=== PATIENT | female | born 1945 | race Caucasian/White ===

== ENCOUNTER → 2016-06-05 | Outpatient (CLI) | payer MEDICARE, OTHER ==
[~2016-06-05] MED LIST: /FENT75PA TD; /HCTZ25TA PO; /MOXI40TA OR; /TIOT18INH INH; ADVAIR INH; ALBU17IN2 INH; ALBU83IN INH; ALBUTEROL TX OR; ASTHMANEX INH; AZIT600T PO; Albuterol Inhaler INH; CALC PO; CALCIUM W VIT D PO; CYCL10TA3 PO; Diazepam PO; Docusate Sodium PO; FENO160T10 PO; Gabapentin PO; HUMALOG SC; HYDR1CR EXT; HYDR25TA6 PO; INSULANT SC; LEVA750T OR; Lantus Insulin SC; METF500T4 OR; METOPROLOL TARTRATE PO; MUCI600T34 PO; MUCU400T2 OR; Metoprolol PO; NEUR100C OR; NYAM10003 EXT; OMEP40CA2 PO; Oxycodone PO; PERCOCET PO; PLAV75TA2 OR; PRED5TAB OR; PREDPOW10 PO; PRO AIR INH; Prednisone PO; SIMVPOW2 PO; SOMA350T PO; Symbicort Inhaler INH; TUSSSUS5 OR; VICO5TAB OR; XOPE1.252 IN; [UNRECOGNIZED DRUG - OTHER] PO
== END ==
LOC: M SMT 11:32
PROVIDERS: ATTEND Internal Medicine Pulmonary Disease
DX: J44.9 Chronic obstructive pulmonary disease, unspecified (principal)

== ENCOUNTER → 2016-06-08 | Outpatient (REF) | payer MEDICARE, OTHER | LOC: M LAB REF 13:26 | PROVIDERS: ATTEND Internal Medicine Pulmonary Disease | DX: J44.1 Chronic obstructive pulmonary disease with (acute) exacerbation (principal) ==

== ENCOUNTER → 2016-06-14 | Outpatient (REF) | payer MEDICARE, OTHER | LOC: M LAB REF 13:23 | PROVIDERS: ATTEND Internal Medicine Pulmonary Disease | DX: J44.1 Chronic obstructive pulmonary disease with (acute) exacerbation (principal) ==

== ENCOUNTER → 2016-07-14 | Outpatient (CLI) | payer MEDICARE, OTHER ==
--- NOTE | 2016-07-14 15:09 | REP ---
LUMBAR SPINE, FIVE VIEWS: HISTORY: Fall. There is no acute fracture. There are old compression fractures of the L1, L3, and L4 vertebral bodies with minimal to mild height loss. The lumbar intervertebral discs are decreased in height. Vacuum phenomenon is present at the L5-S1 level. These findings are consistent with disc degeneration. Osteophytes are present throughout the lumbar spine. There is narrowing of the L3-4 through L5-S1 facet joints. The bony structure is osteopenic. IMPRESSION: Degenerative change as described above. Signed by Baron Melara MD 07/14/2016 03:30 P
== END ==
LOC: M SMT 13:43
PROVIDERS: ATTEND Physician Assistant Medical
DX: S30.91XA Unspecified superficial injury of lower back and pelvis, initial encounter (principal); W00.2XXA Other fall from one level to another due to ice and snow, initial encounter; Y92.89 Other specified places as the place of occurrence of the external cause; Y93.89 Activity, other specified; Y99.8 Other external cause status

== ENCOUNTER → 2016-09-28 | Outpatient (REF) | payer MEDICARE, OTHER ==
[2016-09-28 14:23] LABS: CREATININE FOR GFR 1.09 MG/DL (0.55-1.02); POTASSIUM SERUM 4.7 MEQ/L (3.5-5.1)
== END ==
LOC: M LAB REF 13:16
PROVIDERS: ATTEND Physician Assistant Medical
DX: E11.9 Type 2 diabetes mellitus without complications (principal); E78.5 Hyperlipidemia, unspecified; M81.0 Age-related osteoporosis without current pathological fracture

== ENCOUNTER → 2016-11-16 | Outpatient (CLI) | payer MEDICARE, OTHER ==
--- NOTE | 2016-11-16 12:40 | REP ---
DEEP VENOUS THROMBOSIS STUDY AND REFLUX STUDY: REASON: Chronic venous hypertension left thigh. DEEP VENOUS ULTRASONOGRAPHY LEFT THIGH, RULE OUT DVT: TECHNIQUE: Multiple ultrasonographic images of the deep venous structures of the thigh were obtained from the common femoral vein to the popliteal vein along with Doppler interrogation and color flow Doppler images. FINDINGS: There is no abnormal echogenic material seen within any of the visualized deep venous structures that would suggest acute thrombosis. Coaptation is unremarkable throughout. Doppler interrogation shows an expected response to respiratory variability and augmentation. The color flow images show what appears to be a normal vascular pattern throughout. IMPRESSION: There is no ultrasonographic evidence of deep venous thrombosis involving any of the visualized deep venous structures of the left thigh, as described above. REFLUX STUDY: No reflux was noted in the left common femoral vein and there is no reflux in the anterior accessory greater saphenous vein. No reflux is seen in the greater saphenous vein at the saphenous/femoral vein junction. The AP dimension is 6 mm. No reflux was seen in the mid greater saphenous vein with an AP dimension of 3 mm. No reflux is seen in the greater saphenous vein at the level of the knee, which measured 2 mm in dimension. No reflux was seen in the superficial femoral vein proximally and no significant reflux was seen in the or distal portions of the superficial femoral vein. A small amount of reflux was seen only in the popliteal vein. No reflux was seen in the lesser saphenous vein and t he lesser saphenous vein AP dimension is 3.3 mm. IMPRESSION: Only a small amount of reflux was seen in the popliteal vein. Other findings as described above. Signed by Cristiano Piedra DO 11/16/2016 02:17 P
== END ==
LOC: M RAD 09:47
PROVIDERS: ATTEND Surgery
DX: I87.312 Chronic venous hypertension (idiopathic) with ulcer of left lower extremity (principal)

== ENCOUNTER → 2016-11-20 | Outpatient (CLI) | payer MEDICARE, OTHER ==
--- NOTE | 2016-11-20 14:25 | REP ---
Clinical: Shortness of breath. Comparison: 12/22/2015. Technique: PA and lateral. Findings: The mediastinum and cardiac silhouette are normal. The lung curtis demonstrate chronic linear changes in the bilateral mid lung zones without acute consolidation, effusion, or pneumothorax. The skeletal structures are intact and normal. Impression: 1. No acute cardiopulmonary process. Signed by Nathaniel Arnold MD 11/20/2016 02:16 P
== END ==
LOC: M SMT 13:51
PROVIDERS: ATTEND Nurse Practitioner Adult Health
DX: R06.02 Shortness of breath (principal)

== ENCOUNTER → 2017-04-05 | Outpatient (CLI) | payer MEDICARE, OTHER ==
[2017-04-05 13:53] LABS: CREATININE FOR GFR 0.99 MG/DL (0.55-1.02); POTASSIUM SERUM 4.5 MEQ/L (3.5-5.1)
== END ==
LOC: M SMT 08:38
PROVIDERS: ATTEND Physician Assistant Medical
DX: E11.9 Type 2 diabetes mellitus without complications (principal)

== ENCOUNTER → 2017-06-21 | Outpatient (REF) | payer MEDICARE, OTHER | LOC: M LAB REF 13:08 | DX: J44.1 Chronic obstructive pulmonary disease with (acute) exacerbation (principal) ==

== ENCOUNTER → 2017-06-21 | Outpatient (CLI) | payer MEDICARE, OTHER ==
[2017-06-21 18:57] LABS: ANION GAP 8 MEQ/L (8-16); BLOOD UREA NITROGEN 26 MG/DL (7-18); CALCIUM LEVEL 8.6 MG/DL (8.8-10.2); CARBON DIOXIDE LEVEL 32 MEQ/L (21-32); CHLORIDE LEVEL 100 MEQ/L (98-107); CREATININE FOR GFR 1.07 MG/DL (0.55-1.02); GLUCOSE, FASTING 77 MG/DL (70-100); NT-PRO BNP 265 PG/ML (<125); PHOSPHORUS LEVEL 4.4 MG/DL (2.5-4.9); SODIUM LEVEL 140 MEQ/L (136-145)
[2017-06-21 20:30] LABS: BASO % 0.6 % (0.0-1.0); EOS # 0.1 10^3/uL (0.0-0.50); EOS % 1.4 % (0.0-3.0); HEMATOCRIT 41.4 % (36.0-47.0); HEMOGLOBIN 13.1 g/dl (12.0-16.0); IMMATURE GRANULOCYTE % 0.6 % (0-0); LYMPH # 0.6 10^3/uL (1.5-4.5); LYMPH % 9.1 % (24.0-44.0); MEAN CORPUSCULAR HEMOGLOBIN 30.2 pg (27.0-33.0); MEAN CORPUSCULAR HGB CONC 31.6 g/dl (32.0-36.5); MEAN CORPUSCULAR VOLUME 95.4 fl (80.0-96.0); MONO # 0.5 10^3/uL (0.0-0.8); MONO % 8.3 % (0.0-5.0); PLATELET COUNT, AUTOMATED 215 10^3/uL (150-450); RED BLOOD COUNT 4.34 10^6/uL (4.00-5.40); RED CELL DISTRIBUTION WIDTH 14.3 % (11.5-14.5); WHITE BLOOD COUNT 6.3 10^3/uL (4.0-10.0)
== END ==
LOC: M SMT 12:00
DX: J84.10 Pulmonary fibrosis, unspecified (principal); J98.11 Atelectasis; I50.9 Heart failure, unspecified; J44.1 Chronic obstructive pulmonary disease with (acute) exacerbation
CPT/HCPCS: 80069

== ENCOUNTER → 2017-10-09 | Outpatient (REF) | payer MEDICARE, OTHER ==
[2017-10-09 18:46] LABS: CREATININE, URINE 71.6 MG/DL; MALB URINE SIEMENS 5.2 MG/L; MAU/CREAT RATIO 7.2 MCG/MG (0.0-30.0)
== END ==
LOC: M LAB REF 17:06
DX: N39.0 Urinary tract infection, site not specified (principal); E11.9 Type 2 diabetes mellitus without complications; M54.5 Low back pain
CPT/HCPCS: 82043

== ENCOUNTER → 2017-12-05 | Outpatient (CLI) | payer MEDICARE, OTHER ==
[2017-12-05 14:42] LABS: CREATININE, URINE 87.8 MG/DL; MALB URINE SIEMENS 6.1 MG/L; MAU/CREAT RATIO 6.9 MCG/MG (0.0-30.0)
[2017-12-05 15:56] LABS: ESTIMATED AVERAGE GLUCOSE 146 MG/DL (60-110); HEMOGLOBIN A1c 6.7 %
[2017-12-05 15:58] LABS: ALBUMIN 3.6 GM/DL (3.2-5.2); ALBUMIN/GLOBULIN RATIO 1.24 (1.00-1.93); ALKALINE PHOSPHATASE 45 U/L (45-117); ALT/SGPT 36 U/L (12-78); ANION GAP 10 MEQ/L (8-16); AST/SGOT 26 U/L (7-37); BILIRUBIN,TOTAL 0.3 MG/DL (0.2-1.0); BLOOD UREA NITROGEN 37 MG/DL (7-18); CALCIUM LEVEL 8.6 MG/DL (8.8-10.2); CARBON DIOXIDE LEVEL 30 MEQ/L (21-32); CHLORIDE LEVEL 104 MEQ/L (98-107); CHOLESTEROL LEVEL 173 MG/DL (<200); CHOLESTEROL RISK RATIO 1.965 (<5); CREATININE FOR GFR 1.35 MG/DL (0.55-1.30); GLOMERULAR FILTRATION RATE 41.3 (>39); GLUCOSE, FASTING 102 MG/DL (70-100); HDL CHOLESTEROL 88 MG/DL (>40); LDL CHOLESTEROL 56.4 MG/DL (<100); NON-HDL-C 85 MG/DL; POTASSIUM SERUM 5.1 MEQ/L (3.5-5.1); SODIUM LEVEL 144 MEQ/L (136-145); TOTAL PROTEIN 6.5 GM/DL (6.4-8.2); TRIGLYCERIDES LEVEL 143 MG/DL (<150)
== END ==
LOC: M SMT 08:14
DX: E11.9 Type 2 diabetes mellitus without complications (principal)
CPT/HCPCS: 80053

== ENCOUNTER → 2018-05-02 | Outpatient (REF) | payer MEDICARE, OTHER | LOC: M LAB REF 13:03 | DX: R05 Cough (principal) | CPT/HCPCS: 87205 ==

== ENCOUNTER → 2018-06-18 | Outpatient (CLI) | payer MEDICARE, OTHER | LOC: M LAB 09:14 | PROVIDERS: ATTEND Physician Assistant Medical | DX: M80.87 Other osteoporosis with current pathological fracture, ankle and foot (principal) ==

== ENCOUNTER → 2018-06-18 | Outpatient (CLI) | payer MEDICARE, OTHER ==
--- NOTE | 2018-06-18 13:36 | REP ---
Low-dose lung cancer screening CT study of the chest: Noncontrast. History: COPD. Nicotine dependence. Comparison CT study [facility] October 22, 2008. A chest x-ray from [facility] is obtained and reviewed April 26, 2018. CT findings: There are emphysematous changes in the upper lobes bilaterally. A band-like area of linear fibrosis is seen in the right upper and middle lobe. There are areas of bilateral lower lobe linear fibrosis. These are new findings when compared with the 2009 prior study. No significant pulmonary nodule is appreciated. Impression: Lung -RADS category 2 benign findings. Bilateral linear fibrotic changes and evidence of emphysema, COPD. Annual screening suggested. Electronically Signed by Marin Osorio MD 06/18/2018 05:34 P
== END ==
LOC: M RAD 08:32
PROVIDERS: ATTEND Internal Medicine Pulmonary Disease
DX: Z12.2 Encounter for screening for malignant neoplasm of respiratory organs (principal); J43.9 Emphysema, unspecified; Z87.891 Personal history of nicotine dependence; M80.87 Other osteoporosis with current pathological fracture, ankle and foot
CPT/HCPCS: 36415; 82306; G0297

== ENCOUNTER → 2018-07-15 | Outpatient (CLI) | payer MEDICARE, OTHER ==
--- NOTE | 2018-07-15 14:43 | REP ---
UNILATERAL RIGHT RIBS, PA CHEST: HISTORY: Bone disorder. COMPARISON: 06/21/2017. Linear densities are present in the lower lobes consistent with scarring. The cardiac silhouette is enlarged. The pulmonary vasculature is normal in appearance. The bony structure is intact. The patient is status post right shoulder arthroplasty. IMPRESSION: Bibasilar scarring. Electronically Signed by Baron Melara MD 07/15/2018 02:44 P
== END ==
LOC: M SMT 13:57
PROVIDERS: ATTEND Family Medicine
DX: M89.8X8 Other specified disorders of bone, other site (principal); Z96.611 Presence of right artificial shoulder joint

== ENCOUNTER → 2018-12-02 | Outpatient (CLI) | payer MEDICARE, OTHER ==
[~2018-12-02] MED LIST changes: -/FENT75PA TD; -/HCTZ25TA PO; -/MOXI40TA OR; -/TIOT18INH INH; +AVEL1TAB2 OR; -CALC PO; +CALC1TAB9 PO; +FENT1DIS16 TD; +HYDR-3644 PO; -HYDR1CR EXT; +HYDR1CRE93 EXT; +OXYC1TAB23 PO; -PERCOCET PO; +SPIR1CAP INH
[2018-12-02 13:12] LABS: BASO % 0.4 % (0.0-1.0); EOS # 0.1 10^3/uL (0.0-0.50); EOS % 1.4 % (0.0-3.0); HEMATOCRIT 38.4 % (36.0-47.0); HEMOGLOBIN 11.5 g/dl (12.0-15.5); LYMPH # 0.5 10^3/uL (1.5-4.5); LYMPH % 5.2 % (24.0-44.0); MEAN CORPUSCULAR HGB CONC 29.9 g/dl (32.0-36.5); MEAN CORPUSCULAR VOLUME 100.3 fl (80.0-96.0); MONO # 0.3 10^3/uL (0.0-0.8); MONO % 3.6 % (0.0-5.0); NEUTROPHILS # 8.1 10^3/uL (1.8-7.7); NEUTROPHILS % 88.9 % (36.0-66.0); PLATELET COUNT, AUTOMATED 202 10^3/uL (150-450); RED BLOOD COUNT 3.83 10^6/uL (4.00-5.40); WHITE BLOOD COUNT 9.2 10^3/uL (4.0-10.0)
[2018-12-02 13:30] LABS: ALBUMIN 3.7 GM/DL (3.2-5.2); BILIRUBIN,TOTAL 0.3 MG/DL (0.2-1.0); CALCIUM LEVEL 8.4 MG/DL (8.8-10.2); CHOLESTEROL RISK RATIO 1.92 (<5); CREATININE FOR GFR 1.25 MG/DL (0.55-1.30); POTASSIUM SERUM 4.6 MEQ/L (3.5-5.1); TOTAL PROTEIN 6.9 GM/DL (6.4-8.2)
[2018-12-02 14:17] LABS: HEMOGLOBIN A1c 6.7 %
== END ==
LOC: M SMT 09:50
PROVIDERS: ATTEND Physician Assistant
DX: E11.69 Type 2 diabetes mellitus with other specified complication (principal); E78.5 Hyperlipidemia, unspecified; I87.312 Chronic venous hypertension (idiopathic) with ulcer of left lower extremity; R60.0 Localized edema

== ENCOUNTER → 2018-12-02 | Outpatient (CLI) | payer MEDICARE, OTHER ==
[2018-12-02 13:29] LABS: CALCIUM LEVEL 8.8 MG/DL (8.8-10.2); CREATININE FOR GFR 1.25 MG/DL (0.55-1.30); POTASSIUM SERUM 4.7 MEQ/L (3.5-5.1)
== END ==
LOC: M SMT 09:46
PROVIDERS: ATTEND Physician Assistant Medical
DX: I87.312 Chronic venous hypertension (idiopathic) with ulcer of left lower extremity (principal); R60.0 Localized edema

== ENCOUNTER 2018-12-07 14:43 | Inpatient (IN) | payer MEDICARE, OTHER ==
[~2018-12-07] VITALS: Ht 147.3 cm; Wt 79.6 kg
[2018-12-07] MEDS ORDERED: TETANUS/DIPHTHERIA TOX ADSORB ADULT 0.5ML SYR/VIAL (90714) IM ONE (15:00)
[2018-12-07] MEDS ORDERED: LIDOCAINE 1% MDV 20ML VIAL As Ordered ONE (15:25)
[2018-12-07] MEDS ORDERED: LIDOCAINE 1% MDV 20ML VIAL SC ONE (15:30)
[2018-12-07] MEDS ORDERED: ACETAMINOPHEN 500 MG TAB PO ONE (15:30)
--- NOTE | 2018-12-07 15:33 | REP ---
Left shoulder series: Two views. History: Injury in a fall. Findings: There is an old impacted surgical neck fracture of the left proximal humerus unchanged from comparison chest x-ray 11 32,018. No new proximal humeral fracture is seen. The glenohumeral articulation is normally aligned. There is however an acute fracture of the distal clavicle near the AC joint with overlying soft tissue swelling. There is diffuse osteopenia. No scapular fracture is appreciated. Impression: Acute fracture distal end of the left clavicle near the AC joint. Old healed surgical neck fracture left humerus. Electronically Signed by Marin Osorio MD 12/07/2018 03:24 P
[2018-12-07] MEDS ORDERED: LANTINJ4 SC ×2 (15:47→18:37)
[2018-12-07] MEDS ORDERED: LISI10TA4 PO ×2 (15:55→18:37)
[2018-12-07] MEDS ORDERED: HYDR32TA PO ×2 (15:55→18:37)
[2018-12-07] MEDS ORDERED: FURO80TA2 PO ×2 (15:55→18:37)
[2018-12-07] MEDS ORDERED: PRED10TA2 PO (15:55)
[2018-12-07] MEDS ORDERED: MORP1CAP48 PO (15:55)
[2018-12-07] MEDS ORDERED: ZANT300T9 PO (15:55)
[2018-12-07] MEDS ORDERED: MUCI600T31 PO (15:55)
[2018-12-07] MEDS ORDERED: MORPHINE 2 MG/ML 1ML SYRINGE (J2270) IV ONE (16:15)
[2018-12-07 16:28] LABS: BASO % 0.4 % (0.0-1.0); EOS % 0.2 % (0.0-3.0); HEMATOCRIT 37.2 % (36.0-47.0); HEMOGLOBIN 11.4 g/dl (12.0-15.5); LYMPH # 0.4 10^3/uL (1.5-4.5); LYMPH % 4.1 % (24.0-44.0); MEAN CORPUSCULAR HEMOGLOBIN 30.1 pg (27.0-33.0); MEAN CORPUSCULAR HGB CONC 30.6 g/dl (32.0-36.5); MEAN CORPUSCULAR VOLUME 98.2 fl (80.0-96.0); MONO # 0.5 10^3/uL (0.0-0.8); MONO % 5.7 % (0.0-5.0); NEUTROPHILS # 8.1 10^3/uL (1.8-7.7); NEUTROPHILS % 87.1 % (36.0-66.0); PLATELET COUNT, AUTOMATED 219 10^3/uL (150-450); RED BLOOD COUNT 3.79 10^6/uL (4.00-5.40); WHITE BLOOD COUNT 9.3 10^3/uL (4.0-10.0)
[2018-12-07 16:46] LABS: INR 0.89; PARTIAL THROMBOPLASTIN TIME 22.1 SECONDS (25.0-38.4); PROTHROMBIN TIME 11.8 SECONDS (11.8-14.0)
[2018-12-07 16:59] LABS: CALCIUM LEVEL 8.7 MG/DL (8.8-10.2); CREATININE FOR GFR 1.13 MG/DL (0.55-1.30); GLOMERULAR FILTRATION RATE 50.5 (>39); POTASSIUM SERUM 5.1 MEQ/L (3.5-5.1)
[2018-12-07] MEDS ORDERED: BISACODYL 10 MG SUPP PR PRN (17:00)
[2018-12-07] MEDS ORDERED: PERCOCET 5MG/325MG TAB PO PRN (17:00)
[2018-12-07] MEDS ORDERED: LEVALBUTEROL 1.25 MG/0.5 ML CONCENTRATE NEB NEB PRN (17:00)
[2018-12-07] MEDS ORDERED: ACETAMINOPHEN TAB 650MG DOSE (2X325MG) PO PRN (17:00)
[2018-12-07] MEDS ORDERED: zolPIDEM TARTRATE 5 MG TAB PO PRN (17:00)
[2018-12-07] MEDS ORDERED: ONDANSETRON 4MG/2ML VIAL (J2405) IV PRN (17:00)
[2018-12-07] MEDS ORDERED: NORCO, ANEXSIA 5/325MG TABLET (HYDROcodone/ACETAMINOPHEN) PO PRN (17:00)
[2018-12-07] MEDS ORDERED: DEXTROSE 50% 50 ML SYRINGE IV PRN (18:00)
[2018-12-07] MEDS ORDERED: GLUCAGON FOR INJ 1 MG VIAL (J1610) SC PRN (18:00)
[2018-12-07] MEDS ORDERED: GLUCOSE 4 GM CHEW TABLET PO PRN (18:00)
[2018-12-07 18:10] LABS: ABG BASE EXCESS 7.3 (-2.0-2.0); ABG HCO3 33.5 MEQ/L (22.0-26.0); ABG PARTIAL PRESSURE CO2 55.5 mmHg (35.0-45.0); ABG PARTIAL PRESSURE O2 77.2 mmHg (75.0-100.0); ABG STANDARD HCO3 31.1 MEQ/L (22.0-26.0); ABG TOTAL CO2 35.2 MEQ/L (23.0-31.0); ABG pH (ARTERIAL) 7.399 UNITS (7.350-7.450)
[2018-12-07] MEDS ORDERED: MORPHINE 4 MG/ML 1ML VIAL/SYRINGE (J2270) IV ONE ×2 (18:15→18:45)
[2018-12-07] MEDS ORDERED: GUAI400T9 PO (18:37)
[2018-12-07] MEDS ORDERED: HYDR200T3 PO (18:37)
[2018-12-07] MEDS ORDERED: OMEP40CA2 PO (18:37)
[2018-12-07] MEDS ORDERED: PRED5TA PO (18:37)
[2018-12-07] MEDS ORDERED: AZIT-10 PO (18:37)
[2018-12-07] MEDS ORDERED: CVS1CAP2 PO (18:37)
[2018-12-07] MEDS ORDERED: CALC20SPR (18:37)
[2018-12-07] MEDS ORDERED: PROAAER10 INH (18:37)
[2018-12-07] MEDS ORDERED: VITA50005 PO (18:37)
[2018-12-07] MEDS ORDERED: ASMA1AER3 INH (18:37)
[2018-12-07] MEDS ORDERED: SYMB16INH INH (18:37)
[2018-12-07] MEDS ORDERED: ATOR1TAB19 PO (18:37)
[2018-12-07] MEDS ORDERED: CLOB05OI TOP (18:37)
[2018-12-07] MEDS ORDERED: METO1TAB7 PO (18:37)
[2018-12-07] MEDS ORDERED: INSUHUMDS SC (18:37)
[2018-12-07] MEDS ORDERED: MSIR30TA PO (18:37)
[2018-12-07] MEDS ORDERED: SILV50CR TOP (18:37)
[2018-12-07] MEDS ORDERED: LEVA1.25 INH (18:37)
[2018-12-07] MEDS ORDERED: RANI300T PO (18:37)
[2018-12-07] MEDS ORDERED: GABA-843 PO (18:37)
[2018-12-07] MEDS ORDERED: CARI1TAB7 PO (18:37)
[2018-12-07] MEDS ORDERED: DULO20CA27 PO (18:37)
--- NOTE | 2018-12-07 18:39 | HPEPDOC ---
General Date of Admission Dec 07, 2018 at 16:54 Date of Service: Dec 07, [address] León of the cardiothoracic surgery service Chief Complaint The patient is a 73-year-old female admitted with a reason for visit of Pneumothorax. Source: Patient, Family, Old records Exam Limitations: No limitations Timing/Duration: This afternoon Severity: Moderate Associated Symptoms: Mechanical fall History of Present Illness This is a 73-year-old female who sustained a fall at home. She got her walker tangled in her oxygen tubing and fell over. She has sustained a left clavicular fracture and bilateral rib fractures. She is also noted to have a right-sided very small pneumothorax. The patient has had multiple falls, especially over the past year. She has had fractures to her thoracic vertebrae, shoulder, ankle, and arm. Patient does have underlying osteoporosis. Family notes that at times she is unsteady or does not fully practice, safety precautions when moving about in the house. Home Medications Scheduled Azithromycin (Azithromycin) 600 Mg Tab, 500 MG PO DAILY, (Reported) Carisoprodol (Soma) 350 Mg Tab, 350 MG PO Q8H, (Reported) Cyclobenzaprine Hcl (Cyclobenzaprine Hcl) 10 Mg Tab, 10 MG PO TIDP, (Reported) Furosemide (Furosemide) 80 Mg Tablet, 80 MG PO DAILY, (Reported) Guaifenesin (Mucinex) 600 Mg Tab.er.12h, 400 MG PO Q6H, (Reported) Hydrocortisone/Aloe Vera (Hydrocortisone-Aloe 1% Cream) 1 Dose/30 Gm Cream, 1 DOSE EXT BID, (Reported) Hydromorphone HCl (Hydromorphone ER) 32 Mg Tab.er.24h, 32 MG PO QPM for pain, (Reported) Insulin Glargine,Hum.rec.anlog (Lantus Solostar) 100 Unit/1 Ml Insuln.pen, 40 UNIT SC QPM, (Reported) Lisinopril (Lisinopril) 10 Mg Tablet, 10 MG PO DAILY, (Reported) Omeprazole (Omeprazole) 40 Mg Cap, 40 MG PO DAILY, (Reported) Prednisone (Prednisone) 10 Mg Tablet, 15 MG PO DAILY, (Reported) Ranitidine HCl (Zantac) 300 Mg Tablet, 300 MG PO QPM, (Reported) Tiotropium [place]ilcoot (Spiriva) 6 Puff/Inhaler Cap, 1 PUFF INH DAILY, (Reported) [Albuterol Inhaler] , 2 PUFFS INH BID, (Reported) [Albuterol Neb Tx] , 1 INHALATION OR Q4HP, (Reported) [Asthmanex] , 1 PUFF INH BID, (Reported) [Docusate Sodium] , 2 CAP PO QHS, (Reported) [Gabapentin] , 600 MG PO BID, (Reported) [Humalog Pen] , 10 UNITS SC AC, (Reported) [Metoprolol Tartrate] , 50 MG PO DAILY, (Reported) [Plaquinol] , 200 MG PO DAILY, (Reported) [Pro Air Inhaler] , 2 PUFFS INH QIDP, (Reported) [Symbicort Inhaler] , 2 PUFFS INH BID, (Reported) Scheduled PRN Morphine Sulfate (Morphine Sulfate ER 24HR) 30 Mg Cap.er.pel, 30 MG PO Q4H PRN for pain, (Reported) Allergies Coded Allergies: Sulfa (Sulfonamide Antibiotics) (Verified Allergy, Intermediate, HIVES, 12/07/18) Penicillins (Verified Allergy, Unknown, 12/07/18) Quinolones (Verified Adverse Reaction, Severe, ACHILLES TENDON RUPTURE, 12/07/18) Past Medical History Medical History Past medical history is remarkable for chronic respiratory failure due to oxygen dependent COPD her baseline FiO2 is 2 L/m, dyslipidemia, essential hypertension, rheumatoid arthritis, osteoporosis with multiple fractures, use-wqrphna-sebpjxoat diabetes mellitus, hiatal hernia, Achilles tendon rupture due to medication Surgical History Surgical history includes exploratory laparotomy of the abdomen, left humerus replacement, right wrist replacement, tubal ligation, ovarian cyst removal, hy sterectomy, cataract surgery Family History Significant Family History: No pertinent family hx Social History * Smoker: former Smoker (the patient's tobacco use history is remote 8 years. Prior to that she was a 2 pack per day smoker) Alcohol: sober Drugs: denies Recent Travel/Sick Contacts: Denies: Recent travel, Recent sick contacts Psychosocial History: No pertinent psych hx The patient is retired from working for the [employer]. She is under palliative care. She has a MOLST form. Her CODE STATUS is DNR/DNI. 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 A-FIB/CHADSVASC A-FIB History Current/History of A-Fib/PAF?: No Current PO Anticoag Therapy: No Review of Systems Other systems Review of systems is otherwise negative except as stated in the brief presentation Physical Examination General Exam: Positive: Alert, Cooperative, Moderate Distress Eye Exam: Positive: PERRLA, Conjunctiva & lids normal, Other Eye Symptoms (she has some scleral injection) ENT Exam: Positive: Atraumatic, Mucous membr. moist/pink, Pharynx Normal, Nares Patent, Other ENT (moderate dentition) Neck Exam: Positive: Supple; Negative: JVD, thyromegaly, +2 carotid pulse wo bruit, Lymphadenopathy, Other Chest Exam: Positive: Other (bilateral coarse breath sounds, no active cough. Patient is splinting due to pain.) Heart Exam: Positive: Rate Normal, Regular Rhythm, Normal S1, Normal S2; Negative: Murmurs, Rubs Abdomen Exam: Positive: Normal bowel sounds, Soft, Other (patient has moderate central obesity, relative to her overall body habitus) Extremity Exam: Positive: Normal pulses, Other (patient has remarkable joint deformities due to rheumatoid arthritis) Skin Exam: Positive: Other skin issue (patient has very thin skin due to chronic steroid use. She has skin laceration to her left lower extremity from her fall. She also has a chronic ulcer. She also has chronic bruising and ecchymoses and discoloration distributed to her legs and arms.) Neuro Exam: Positive: Normal Speech, Sensation Intact, Cranial Nerves 3-12 NL Psych Exam: Positive: Mental status NL, Memory Intact, Oriented x 3, Other (cognition, judgment and insight are otherwise intact for her age) Vital Signs Vital Signs Date Time Temp Pulse Resp B/P (MAP) Pulse Ox O2 Delivery O2 Flow Rate FiO2 12/07/18 17:43 100 99 Nasal Cannula 2.0 12/07/18 16:33 18 12/07/18 16:02 169/72 (104) 12/07/18 15:26 98.6 Laboratory Data Labs 24H Laboratory Tests 2 12/07/18 16:19: Immature Granulocyte % (Auto) 2.5, White Blood Count 9.3, Red Blood Count 3.79L, Hemoglobin 11.4L, Hematocrit 37.2, Mean Corpuscular Volume 98.2H, Mean Corpuscular Hemoglobin 30.1, Mean Corpuscular Hemoglobin Concent 30.6L, Red Cell Distribution Width 15.0H, Platelet Count 219, Neutrophils (%) (Auto) 87.1H, Lymphocytes (%) (Auto) 4.1L, Monocytes (%) (Auto) 5.7H, Eosinophils (%) (Auto) 0.2, Basophils (%) (Auto) 0.4, Neutrophils # (Auto) 8.1H, Lymphocytes # (Auto) 0.4L, Monocytes # (Auto) 0.5, Eosinophils # (Auto) 0.0, Basophils # (Auto) 0.0, Nucleated Red Blood Cells % (auto) 0.0, Prothrombin Time 11.8, Prothromb Time International Ratio 0.89, Activated Partial Thromboplast Time 22.1L, Anion Gap 8, Glomerular Filtration Rate 50.5, Blood Urea Nitrogen 21H, Creatinine 1.13, Sodium Level 140, Potassium Level 5.1, Chloride Level 100, Carbon Dioxide Level 32, Calcium Level 8.7L 12/07/18 17:56: Blood Gas Bicarbonate Standard 31.1H, Arterial Blood pH 7.399, Arterial Blood Partial Pressure CO2 55.5H, Arterial Blood Partial Pressure O2 77.2, Arterial Blood Total CO2 35.2H, Arterial Blood HCO3 33.5H, Arterial Blood Base Excess 7.3H, Arterial Blood Oxygen Saturation 95.0 CBC/BMP Laboratory Tests 12/07/18 16:19 Red Blood Count 3.79 L, Mean Corpuscular Volume 98.2 H, Mean Corpuscular Hemoglobin 30.1, Mean Corpuscular Hemoglobin Concent 30.6 L, Red Cell Distribution Width 15.0 H, Neutrophils (%) (Auto) 87.1 H, Lymphocytes (%) (Auto) 4.1 L, Monocytes (%) (Auto) 5.7 H, Eosinophils (%) (Auto) 0.2, Basophils (%) (Auto) 0.4, Neutrophils # (Auto) 8.1 H, Lymphocytes # (Auto) 0.4 L, Monocytes # (Auto) 0.5, Eosinophils # (Auto) 0.0, Basophils # (Auto) 0.0, Calcium Level 8.7 L Assessment/Plan 1. Right pneumothorax.The patient has been seen in the ER by cardiothoracic surgery service. Chest tube or even pigtail catheter is not recommended at this time. Patient is expected of a repeat chest x-ray in 6 hours. Patient is not acutely hypoxic, but has remarkable pain. The patient will receive oxygen and be monitored in the PCU. 2. Bilateral rib fracturesthe patient has a fractured to second rib on the right and ribs 2, 4 and 6 on the left. She also has a left distal clavicular fracture. Pain inhibits her mobility and ability to breathe deeply. Agree with pain medications and incentive spirometry to keep her expanded. Patient is at risk of developing pneumonia during this hospital stay. 3. Chronic painpatient has chronic pain from rheumatoid arthritis and multiple fracture injuries. She is under palliative care and is on a very aggressive pain management regimen. Her medications will need to be restored in order to avoid potential for opioid withdrawal. 4. Rfo-kudezhu-jhrisozve diabetes mellitus.Patient is chronically on steroids. We will restore her diabetes management regimen and include sliding scale insulin. 5. Oxygen dependent COPD,patient will be continued on her usual respiratory regimen, she is not currently having an acute exacerbation. The patient is placed inpatient status into the PCU. When she is sufficiently recovered to breathe comfortably she will need physical and occupational therapy eval for safety. Plan / VTE VTE Prophylaxis Ordered?: Yes Plan IVF: Initiate Diet: Continue Current Activity: Continue Current Therapy: PT, OT, Home Safety Eval Medications: Other Med: (continue current pain med regimen) Diagnostics: Repeat Labs in AM, Xrays Anticipated Discharge: Home With Services Advanced Directives: MOLST Form is available, Do Not Resuscitate (DNR), Do Not Intubate (DNI), Health Care Proxy (HCP) JUVENAL TIDWELL MD Dec 07, 2018 18:39
[2018-12-07] MEDS ORDERED: KCL 20MEQ IN D5/NS 1000ML 1,000 ML IV SCH (19:00)
[2018-12-07] MEDS: LEVALBUTEROL 1.25 MG/0.5 ML CONCENTRATE NEB NEB SCH (19:46)
[2018-12-07] MEDS: MORPHINE 30 MG TAB **MSIR PO PRN (20:25)
[2018-12-07] MEDS: HEPARIN SOD (PORCINE) 5000 UNITS/ML VIAL SC SCH (20:26)
--- NOTE | 2018-12-07 20:55 | CR ---
DATE OF CONSULTATION: 12/07/2018 The patient is seen at the request of the emergency room, Dr. Acosta, and the hospitalist service for a pneumothorax, status post a fall. The patient is a 73-year-old white female with chronic obstructive pulmonary disease (COPD) on steroids of prednisone 15 mg per day for numerous years. She wears oxygen at home and when she was taking out her laundry to air it, she tripped over her oxygen cord and fell to the ground. She hit her right side and felt immediate pain with accompanying shortness of breath. She was brought to the emergency room by emergency medical services (EMS). She is in a significant amount of pain now and states that she has difficulty breathing because of the pain. Prior to this she had a cough but it is nonproductive. She is continuing short of breath and in fact has orthopnea and sleeps in a recliner. She has a known diagnosis of congestive heart failure (CHF). She complains of leg swelling such that sometimes her legs became "elephant legs." There has been no fever or chills, but she does have night sweats. 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 She states that her TB tests were always negative. There is no dysphagia. She is independent at home and ambulates with a walker. PAST MEDICAL ILLNESSES: 1. COPD. 2. Diabetes. 3. Congestive heart failure (CHF). 4. Rheumatoid arthritis. 5. Gastroesophageal reflux disease (GERD). PAST SURGICAL HISTORY: 1. Numerous orthopedic surgeries for rheumatoid arthritis, including a right wrist fusion, right shoulder replacement. 2. Exploratory laparotomy done in [place] in the remote past for fever of unknown origin where they found congested lymph nodes. 3. Hysterectomy. 4. Tubal ligation. 5. Ovarian cystectomy at age 15. She has had five children. TRAVEL HISTORY: She has traveled to [place] and has driven to [place]. No foreign travel. EXPOSURES: No dogs, birds or cats at home. 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 There has been no convincing asbestos exposure. HABITS: Smoked two packs per day of [employer]'s and Neri's and then started rolling her own cigarettes. Has not imbibed alcohol for 8 years. There is no history of illicit drugs. FAMILY HISTORY: Not pertinent to the acute situation. REVIEW OF SYSTEMS: CONSTITUTIONAL: See history of present illness. EYES: Without diplopia. Without amaurosis fugax. Without prior jaundice. NOSE: Without epistaxis. MOUTH: She has her own teeth. RESPIRATORY: See history of present illness. CARDIAC: See history of present illness. Has orthopnea but denies paroxysmal nocturnal dyspnea. Has peripheral edema. Carries the diagnosis of congestive heart failure. GASTROINTESTINAL: Without nausea, vomiting, diarrhea. Has occasional constipation, for which she takes Senna. Without melena or hematochezia, abdominal pain or hematemesis. GENITOURINARY: Without dysuria or hematuria but she is incontinent. No history of renal stones. ENDOCRINE: With diabetes. Without thyroid disease. PSYCHIATRIC: Without pathological anxieties, depression, or psychoses. NEUROLOGIC: Without paresthesia, paralyses or prior seizures. INVESTIGATIONS: White count is 9.3 with a hemoglobin and hematocrit of 11.4 and 37.2. Her indices show a macrocytosis with MCV of 98.2. Platelet count is 219. Differential shows 87% neutrophils, 4% lymphocytes, 5% monocytes. There are no immature forms. No toxic granulations. Her PT/INR is pending. Electrolytes are still pending and I will review them when they come back in 15 minutes. Her chest x-ray shows a sliver of a pneumothorax in the right cupula. She is obviously osteopenic. There is a second posterior rib fracture. CAT scan, done without contrast, shows multiple emphysematous changes throughout both lungs. She has a small pneumothorax. Great vessels are intact. She has a second posterior rib fracture on the right. There are some indentations on the left ribs of rib 2, 3, 4, but I actually do not see perceived fractures per se, 5. Rib 6 does have a fracture on the left. She has multiple old fractures with callus formations on the right. Adrenals are atrophic. Liver intact. I do not see a gallbladder. There is no mediastinal lymphadenopathy. IMPRESSION: 1. Multiple rib fractures. 2. Small right sided pneumothorax. 3. Chronic obstructive pulmonary disease (COPD) with oxygen dependence. 4. Congestive heart failure (CHF). 5. Orthopnea. 6. Diabetes. 7. Gastroesophageal reflux disease (GERD). 8. Rheumatoid arthritis, on chronic steroids. 9. Distal fracture of the left clavicle. PLAN/DISCUSSION: Her pneumothorax is very small and I think that her perceived shortness of breath is secondary to pain. I have asked the emergency room and the hospitalist service to get her pain under control. We will repeat a chest x-ray in 6 hours. If the pneumothorax is stable, I will defer placing a tube. She does have multiple emphysematous changes and it is certainly conceivable that even a small pneumothorax could make her short of breath. I will ask the emergency room to send a blood gas off.
[2018-12-07] MEDS ORDERED: HumaLOG INSULIN (NovoLOG) PER UNIT SC SCH (21:00)
[2018-12-07 23:00] VITALS: BP 156/85
[2018-12-07] MEDS: PERCOCET 5MG/325MG TAB PO PRN (23:29)
[2018-12-07] MEDS: DOCUSATE SODIUM 100 MG CAP PO SCH (23:29)
[2018-12-08] VITALS (29 sets, daily range): BP systolic 104–188; BP diastolic 56–104
[2018-12-08] MEDS: HYDROMORPHONE PO SCH ×2 (00:23→20:39)
[2018-12-08] MEDS: MORPHINE 30 MG TAB **MSIR PO PRN ×2 (01:49→07:40)
[2018-12-08] MEDS: PERCOCET 5MG/325MG TAB PO PRN (04:06)
[2018-12-08 06:01] LABS: BASO % 0.4 % (0.0-1.0); EOS # 0.1 10^3/uL (0.0-0.50); EOS % 0.7 % (0.0-3.0); HEMATOCRIT 35.3 % (36.0-47.0); HEMOGLOBIN 10.3 g/dl (12.0-15.5); LYMPH # 1.1 10^3/uL (1.5-4.5); MEAN CORPUSCULAR HEMOGLOBIN 28.5 pg (27.0-33.0); MEAN CORPUSCULAR HGB CONC 29.2 g/dl (32.0-36.5); MEAN CORPUSCULAR VOLUME 97.8 fl (80.0-96.0); MONO # 0.9 10^3/uL (0.0-0.8); MONO % 9.5 % (0.0-5.0); NEUTROPHILS # 6.9 10^3/uL (1.8-7.7); NEUTROPHILS % 76.4 % (36.0-66.0); PLATELET COUNT, AUTOMATED 195 10^3/uL (150-450); RED BLOOD COUNT 3.61 10^6/uL (4.00-5.40)
[2018-12-08 06:12] LABS: ABG BASE EXCESS 5.3 (-2.0-2.0); ABG O2 SATURATION 93.4 % (95.0-99.0); ABG STANDARD HCO3 29.2 MEQ/L (22.0-26.0); ABG TOTAL CO2 37.5 MEQ/L (23.0-31.0)
[2018-12-08 06:16] LABS: ABG PARTIAL PRESSURE CO2 83.1 mmHg (35.0-45.0); ABG pH (ARTERIAL) 7.242 UNITS (7.350-7.450)
[2018-12-08 06:29] LABS: BLOOD UREA NITROGEN 17 MG/DL (7-18); CALCIUM LEVEL 8.7 MG/DL (8.8-10.2); CARBON DIOXIDE LEVEL 34 MEQ/L (21-32); CHLORIDE LEVEL 101 MEQ/L (98-107); CREATININE FOR GFR 0.97 MG/DL (0.55-1.30); GLOMERULAR FILTRATION RATE > 60.0 (>39); GLUCOSE, FASTING 264 MG/DL (70-100); POTASSIUM SERUM 4.4 MEQ/L (3.5-5.1); SODIUM LEVEL 139 MEQ/L (136-145)
--- NOTE | 2018-12-08 06:50 | REP ---
Chest x-ray: Two views. History: Injury in a fall. Comparison study: July 15, 2018. Findings: There is a right humeral head replacement. An old healed impacted fracture of the surgical neck of the left humerus is seen. Distal clavicle fracture is noted on the left which appears acute. Mild cardiomegaly is observed unchanged. The aorta is tortuous. There is mild linear fibrosis in the left base. There is evidence of a small right apical pneumothorax. There is diffuse osteopenia. Impression: Small right apical pneumothorax. Acute fracture distal clavicle on the left. Old healed fracture left proximal humerus. Mild cardiomegaly. Linear fibrosis left base. No acute infiltrate. Electronically Signed by Marin Osorio MD 12/08/2018 09:35 A
--- NOTE | 2018-12-08 07:01 | IPNPDOC ---
Text Note Date of Service The patient was seen on 12/08/18. NOTE I was called this morning by the patient's RN for a critical lab value regarding the patient's ABG of 7.24/83/79/35. I went to evaluate the patient at the bedside, and she is awake, alert, oriented to place, and able to tell me her birthdate. She did not have any respiratory distress, but is complaining of generalized pain 2/2 her underlying RA. Given the patient's hypercarbia and diagnosis of small pneumothorax on admission, she is at a high risk for BiPAP therapy. I did discuss the case with Dr. Bates of Pulmonology via telephone, and at this time BiPAP is not recommended given the aforementioned concerns. The patient is a DNR/DNI, and this was confirmed at the bedside. We will repeat an ABG in 1 hour to follow up with the patient's progress, and determine the next step from there. I updated Dr. León of Thoracic Surgery about the patient's clinical condition, and he will follow up with this morning's CXR. I did have an extensive discussion with the patient, , and two daughters at the bedside as well, and informed them of the current situation and guarded clinical condition. They have verbalized understanding of the same, and agree with the plan moving forward. V/S: Temp 97.6 HR: 96 RR: 18 B/P: 118/76 General: Awake, Alert, Oriented to person, place, situation. Moderate distress 2/2 generalized pain HEENT: NC/AT Neck: No JVD Lungs: Diminished Breath Sounds Right side vs Left Abd: Soft, NT/ND Extremities: No tenderness to palpation, or edema VS,Fishbone, I+O VS, Fishbone, I+O Laboratory Tests 12/07/18 16:19 Red Blood Count 3.79 L, Mean Corpuscular Volume 98.2 H, Mean Corpuscular Hemoglobin 30.1, Mean Corpuscular Hemoglobin Concent 30.6 L, Red Cell Distribution Width 15.0 H, Neutrophils (%) (Auto) 87.1 H, Lymphocytes (%) (Auto) 4.1 L, Monocytes (%) (Auto) 5.7 H, Eosinophils (%) (Auto) 0.2, Basophils (%) (Auto) 0.4, Neutrophils # (Auto) 8.1 H, Lymphocytes # (Auto) 0.4 L, Monocytes # (Auto) 0.5, Eosinophils # (Auto) 0.0, Basophils # (Auto) 0.0, Calcium Level 8.7 L 12/08/18 05:17 Red Blood Count 3.61 L, Mean Corpuscular Volume 97.8 H, Mean Corpuscular Hemoglobin 28.5, Mean Corpuscular Hemoglobin Concent 29.2 L, Red Cell Distribution Width 15.5 H, Neutrophils (%) (Auto) 76.4 H, Lymphocytes (%) (Auto) 12.0 L, Monocytes (%) (Auto) 9.5 H, Eosinophils (%) (Auto) 0.7, Basophils (%) (Auto) 0.4, Neutrophils # (Auto) 6.9, Lymphocytes # (Auto) 1.1 L, Monocytes # (Auto) 0.9 H, Eosinophils # (Auto) 0.1, Basophils # (Auto) 0.0, Calcium Level 8.7 L Vital Signs Date Time Temp Pulse Resp B/P (MAP) Pulse Ox O2 Delivery O2 Flow Rate FiO2 12/08/18 04:36 20 12/08/18 04:00 96.6 108 137/66 (89) 97 2.0 12/07/18 20:28 Nasal Cannula I&O- Last 24 Hours up to 6 AM 12/08/18 06:00 Intake Total 485 ml Balance 485 ml KATIE BLAKE MD Dec 08, 2018 07:01
[2018-12-08] MEDS ORDERED: SILVER SULFADIAZINE 1% CR 50 GM JAR TOP PRN (07:15)
[2018-12-08] MEDS: HumaLOG INSULIN (NovoLOG) PER UNIT SC SCH ×3 (07:30→17:30)
--- NOTE | 2018-12-08 07:31 | REP ---
CT chest without contrast: History: Trauma. Injury in a fall. Comparison is made with today's chest x-ray as well as prior chest CT studies from June 18, 2018 and November 25, 2012. Findings: The CT study confirms the presence of a small right-sided pneumothorax. There is no significant pleural effusion. No left-sided pneumothorax is seen. There is plate-like atelectasis in the right middle lobe, lingula, and right lower lobe. There are mild emphysematous changes in the upper lobes bilaterally. There is no evidence of mediastinal hematoma. There is a small quantity of extrapleural and extrathoracic air along the anterior chest wall on the right. There is a nondisplaced recent fracture of the right anterior second rib with some adjacent extrathoracic gas. There are old healed fractures of the anterior third, fourth and fifth ribs on the right. There are multiple new cortical irregularities involving the left anterolateral rib cage compared with the June 18, 2018 study. These involve the left anterior second, third, left lateral fourth and sixth ribs. The sixth lateral rib is definitely an acute nondisplaced fracture. There is a diastatic fracture through the distal end of the left clavicle as seen on the radiographs. There are multiple osteoporotic wedge compression deformities in the thoracic and upper lumbar spine. Healing sclerosis is noted and no definite acute spine fracture is seen. They are more numerous when compared with the November [address] study. Impression: Small right pneumothorax confirmed. Acute fractures of the right anterior second, left anterior second, left lateral fourth and sixth ribs as well as the left distal clavicle. Interval development of multiple healing osteoporotic wedge compression fracture deformities in the thoracic spine since the 2012 prior study. No definite acute thoracic spine fracture seen. Electronically Signed by Marin Osorio MD 12/08/2018 09:38 A
[2018-12-08] MEDS ORDERED: LIDOCAINE 1% MDV 20ML VIAL As Ordered ONE (07:56)
[2018-12-08] MEDS ORDERED: MIDAZOLAM INJ 2 MG/2 ML VIAL (J2250) As Ordered ONE ×3 (07:56→13:19)
[2018-12-08] MEDS ORDERED: SYMBICORT 160/4.5MCG INHALER 6GM INH SCH (08:00)
--- NOTE | 2018-12-08 08:25 | REP ---
Portable chest x-ray: Single view. History: Pneumothorax. Comparison chest x-ray December 07, 2018. Findings: There is a small right-sided pneumothorax. This has enlarged since the 10:11 p.m. film on 12/07/2018. There is plate-like atelectasis in the right base and linear fibrosis in the left base. Oxygen tubing and EKG electrodes are seen. No soft tissue emphysema persists or along the right lateral chest wall. There is a linear catheter like structure oval overlying the right upper quadrant of the abdomen. Impression: Gradually increasing right-sided pneumothorax. Electronically Signed by Marin Osorio MD 12/08/2018 08:17 A
[2018-12-08] MEDS ORDERED: KETOROLAC 30 MG/ML VIAL (J1885) IV ONE (08:30)
[2018-12-08] MEDS ORDERED: MORPHINE 10 MG/ML 1ML VIAL (J2270) IV ONE ×3 (08:45→20:15)
--- NOTE | 2018-12-08 08:49 | REP ---
Portable chest x-ray: Single view. History: Pneumothorax status post chest tube insertion. Comparison study is from 07:00 a.m. on this date. Findings: A right apical chest tube is in good position. The right sided pneumothorax has been evacuated. There is some atelectasis in the right base which is increased and there is some volume loss in the right hemithorax. Extrathoracic soft tissue emphysema is seen. Linear fibrosis is noted in the left base. Electronically Signed by Marin Osorio MD 12/08/2018 08:40 A
[2018-12-08] MEDS ORDERED: MOM 30ML SUSPENSION UDC PO SCH (09:00)
[2018-12-08] MEDS ORDERED: ATORVASTATIN 10 MG TAB PO SCH (09:00)
[2018-12-08] MEDS ORDERED: DULoxetine 20 MG CAP (CYMBALTA) PO SCH (09:00)
[2018-12-08] MEDS: HEPARIN SOD (PORCINE) 5000 UNITS/ML VIAL SC SCH (09:00)
[2018-12-08] MEDS: guaiFENesin 200 MG TAB PO SCH ×3 (09:00→16:41)
[2018-12-08] MEDS ORDERED: AZITHROMYCIN 250 MG TAB PO SCH (09:00)
[2018-12-08] MEDS ORDERED: predniSONE 5 MG TAB PO SCH (09:00)
[2018-12-08] MEDS ORDERED: GABAPENTIN 300 MG CAP PO SCH (09:00)
[2018-12-08] MEDS ORDERED: FAMOTIDINE 20 MG TAB PO SCH (09:00)
[2018-12-08] MEDS ORDERED: HYDROXYCHLOROQUINE 200 MG TAB PO SCH (09:00)
[2018-12-08] MEDS ORDERED: FUROSEMIDE 80 MG TAB PO SCH (09:00)
[2018-12-08] MEDS ORDERED: METOPROLOL SUCC (TopROL XL) 50MG **XL** TAB PO SCH (09:00)
[2018-12-08] MEDS ORDERED: LISINOPRIL 10 MG TAB PO SCH (09:00)
[2018-12-08] MEDS: DOCUSATE SODIUM 100 MG CAP PO SCH (09:00)
[2018-12-08] MEDS ORDERED: MORPHINE 10 MG/ML 1ML VIAL (J2270) IV PRN (09:00)
[2018-12-08] MEDS ORDERED: PANTOPRAZOLE 40MG TAB (PROTONIX) PO SCH (09:00)
[2018-12-08] MEDS ORDERED: CLOBETASOL PROP 0.05% OINT 30 GM TOP SCH (09:00)
[2018-12-08] MEDS ORDERED: CALCITONIN NASAL SPRAY 3.7 ML BTL SCH (09:00)
[2018-12-08] MEDS: LEVALBUTEROL 1.25 MG/0.5 ML CONCENTRATE NEB NEB SCH ×2 (09:15→13:38)
--- NOTE | 2018-12-08 09:25 | REP ---
Chest x-ray: Two views. History: Pneumothorax. Comparison study December 07, 2018 radiograph 03:02 p.m. film. Findings: The left distal clavicle fracture is again seen. There is an old left proximal humeral fracture. A small right apical pneumothorax is again seen slightly larger than on the 03:02 p.m. film. There is soft tissue emphysema in the extrathoracic soft tissues along the lateral chest wall. Plate-like atelectasis is noted in both lung bases. Impression: Slight interval increase in the size of the right sided small pneumothorax. Electronically Signed by Marin Osorio MD 12/08/2018 09:40 A
[2018-12-08] MEDS ORDERED: MIDAZOLAM INJ 2 MG/2 ML VIAL (J2250) IV ONE (10:15)
[2018-12-08] MEDS ORDERED: LIDOCAINE 1% MDV 20ML VIAL SC ONE (10:15)
[2018-12-08] MEDS ORDERED: CARISOPRODOL 350 MG TAB PO SCH (12:00)
[2018-12-08] MEDS ORDERED: fentaNYL 100 MCG/2 ML INJECTION (J3010) As Ordered ONE ×2 (12:48→13:19)
[2018-12-08] MEDS: MORPHINE 30 MG TAB **MSIR PO SCH ×3 (13:00→20:39)
[2018-12-08] MEDS: fentaNYL 100 MCG/2 ML INJECTION (J3010) IV PRN ×2 (13:11→13:20)
[2018-12-08] MEDS: MIDAZOLAM INJ 2 MG/2 ML VIAL (J2250) IV PRN ×2 (13:11→13:20)
[2018-12-08] MEDS ORDERED: FENTANYL 2MCG/ML BUPIVACAINE 0.0625% NACL 250ML IV BAG As Ordered ONE (13:58)
[2018-12-08] MEDS ORDERED: METOCLOPRAMIDE INJ 10MG/2ML VIAL (J2765) IV PRN (14:00)
[2018-12-08] MEDS ORDERED: FENTANYL/BUPIVACAINE/NACL BAG 250 ML EPIDURAL SCH (14:00)
[2018-12-08] MEDS ORDERED: diphenhydrAMINE INJ 50MG/ML VIAL (J1200) IV PRN ×2 (14:00)
[2018-12-08] MEDS ORDERED: FENTANYL/ROPIVACAINE/NACL BAG 100 ML EPIDURAL SCH (14:00)
[2018-12-08] MEDS ORDERED: EPIDURAL COMMENT XX SCH (14:00)
[2018-12-08] MEDS ORDERED: NALOXONE INJ 0.4 MG/1 ML VIAL (J2310) IV PRN ×2 (14:00)
[2018-12-08] MEDS ORDERED: ePHEDrine SULFATE 25 MG/5 ML(5MG/ML) SYRINGE IV PRN (14:00)
[2018-12-08] MEDS ORDERED: ONDANSETRON 4MG/2ML VIAL (J2405) IV PRN ×2 (14:00)
[2018-12-08] MEDS ORDERED: EPIDURAL/PCA KEYS XX PRN ×3 (14:00→20:45)
[2018-12-08] MEDS ORDERED: REFRIGERATOR IV KEYS XX PRN (14:00)
[2018-12-08] MEDS ORDERED: WALLBOXKEY XX PRN (14:00)
[2018-12-08] MEDS ORDERED: LACTATED RINGER'S 1000 ML IV PRN (14:00)
--- NOTE | 2018-12-08 18:28 | IPNPDOC ---
Text Note Date of Service The patient was seen on 12/08/18. NOTE The patient had had worsening of her pneumothorax overnight resulting in wors ening respiratory failure with hypercarbia. She has also been in severe poorly controlled pain. Patient sustained right pneumothorax, distal left clavicular fracture, bilateral rib fractures after a ground-level fall. Physical exam: HEENT: Oral mucosa is moist, she has scleral injection, neck is moderately supple, no thyromegaly or adenopathy. Cardiovascular: Regular rate and rhythm with a normal S1 and S2. Respiratory: Patient has had remarkable distress, respirations and chest excursion have been limited by pain, chest wall is tender to palpation Abdomen: Soft, nontender with moderate central obesity, bowel tones are present Extremities: Patient has joint deformity consistent with her rheumatoid arthritis, not have significant pedal edema recently, she has remarkable ecchymoses to her left shoulder at the site of her clavicular fracture, left upper extremity is in a sling. Neuro: Patient's mobility is limited by pain Psych: Patient has considerable distress from pain, she is fully responsive, and has attempted to make decisions regarding her care. Radiologic review: Repeat chest x-ray Comparison chest x-ray December 07, 2018. Findings: There is a small right-sided pneumothorax. This has enlarged since the 10:11 p.m. film on 12/07/2018. There is plate-like atelectasis in the right base and linear fibrosis in the left base. Oxygen tubing and EKG electrodes are seen. No soft tissue emphysema persists or along the right lateral chest wall. There is a linear catheter like structure oval overlying the right upper quadrant of the abdomen. Impression: Gradually increasing right-sided pneumothorax. Electronically Signed by Marin Osorio MD 12/08/2018 08:17 A ASSESSMENT/PLAN: 1. Pneumothorax--this has been a traumatic injury. It unfortunately increased in size overnight. Patient had conversation with cardiothoracic surgery service and consented to having a chest tube placed. 2. Acute on chronic hypoxic and acute hypercarbic respiratory failure--the patient does have underlying severe COPD that is oxygen dependent. Pneumothorax has exacerbated her. She is also developed acute hypercarbia from decreased respirations from her pneumothorax. Chest tube was placed in attempt to improve this. BiPAP has been discussed, the patient has adamantly refused. #3. Acute on chronic pain--patient has chronic pain from her underlying rh eumatoid arthritis and prior compression fractures. She has multiple acute fractures. She is usually on a fairly aggressive pain regimen inclusive of opiates, Neurontin, Flexeril, Cymbalta and Soma. She had not been able to take oral medications due to her distress and so we had made use of IV morphine. We are hopeful of restoring her usual pain regimen as it is what is most effective for her. If her pain is controlled she may breathe better. In view of that, placement of an epidural has been suggested. She has agreed to this procedure. 4. Kcw-ivndyqg-ebzndxven diabetes mellitus--she is restored where possible to her glucose control regimen with the addition of sliding scale insulin. She has also been steroid dependent for many years and steroids remain in her medication regimen. 5. CODE STATUS--the patient has adamantly stated from arrival that she is to be DNR/DNI. She is strongly supported in this by her family. There was apparently an error with her MOLST form and it had to be redone; this was with the patient and with her healthcare proxies her and her daughter. Patient is DNR and DNI. She is to have limited interventions. She does not want a feeding tube. She adamantly refuses BiPAP. She also does not want dialysis. She is agreeable to transfusion and antibiotics. Patient has agreed to chest tube and epidural for comfort. Additionally, however, family wishes to pursue home hospice services for when the patient is discharged. Patient is already under palliative care services. The patient has considerable morbidity and increased risk of mortality. VS,Edd, I+O VS, Edd, I+O Laboratory Tests 12/08/18 05:17 Red Blood Count 3.61 L, Mean Corpuscular Volume 97.8 H, Mean Corpuscular Hemoglobin 28.5, Mean Corpuscular Hemoglobin Concent 29.2 L, Red Cell Distribution Width 15.5 H, Neutrophils (%) (Auto) 76.4 H, Lymphocytes (%) (Auto) 12.0 L, Monocytes (%) (Auto) 9.5 H, Eosinophils (%) (Auto) 0.7, Basophils (%) (Auto) 0.4, Neutrophils # (Auto) 6.9, Lymphocytes # (Auto) 1.1 L, Monocytes # (Auto) 0.9 H, Eosinophils # (Auto) 0.1, Basophils # (Auto) 0.0, Calcium Level 8.7 L Vital Signs Date Time Temp Pulse Resp B/P (MAP) Pulse Ox O2 Delivery O2 Flow Rate FiO2 12/08/18 16:41 19 2.0 12/08/18 16:01 97.2 97 124/60 (81) 94 12/08/18 12:01 Nasal Cannula I&O- Last 24 Hours up to 6 AM 12/08/18 06:00 Intake Total 485 ml Balance 485 ml JUVENAL TIDWELL MD Dec 08, 2018 18:28
[2018-12-08] MEDS ORDERED: BUPIVACAINE/NACL BAG 250 ML EPIDURAL SCH (19:00)
[2018-12-08] MEDS ORDERED: LIDOCAINE 1% MDV 20ML VIAL ONE (19:15)
[2018-12-08] MEDS ORDERED: BUPIVACAINE/EPIN 0.25% 30 ML VIAL ONE (19:15)
[2018-12-08] MEDS ORDERED: SCOPOLAMINE 1MG TRANSDERMAL PATCH TOP PRN (20:15)
[2018-12-08] MEDS ORDERED: LEVEMIR (INSULIN DETEMIR) 1 UNITS/0.01ML SC SCH (21:00)
[2018-12-08] MEDS: MORPHINE SULF IN 0.9% NACL 100 MG in APPROPRIATE DILUENT 1 EA IV SCH ×4 (21:13→21:17)
--- NOTE | 2018-12-08 21:54 | IPNPDOC ---
Text Note Date of Service The patient was seen on 12/08/18. NOTE Called by the patient's bedside JENNIFER Hunter at 7:30pm to address CODE STATUS as the patient and her family including , 2 daughters, and son among others were in the room and had all agreed to making the patient comfort measures only. I spoke to Mrs. Choe myself at the bedside, and she was of sound mind, and capable of making her own decisions as well. 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 Implications of this decision were discussed at length, and the patient/family have verbalized understanding of the same and would like to continue with the aforementioned request. A MOLST form was signed, dated, and placed in the chart to reflect these wishes. We will continue to provide the patient and her family supportive care. Dr. eLón of Thoracic surgery was updated. VS,Fishbone, I+O VS, Fishbone, I+O Laboratory Tests 12/08/18 05:17 Red Blood Count 3.61 L, Mean Corpuscular Volume 97.8 H, Mean Corpuscular Hemoglobin 28.5, Mean Corpuscular Hemoglobin Concent 29.2 L, Red Cell Distribution Width 15.5 H, Neutrophils (%) (Auto) 76.4 H, Lymphocytes (%) (Auto) 12.0 L, Monocytes (%) (Auto) 9.5 H, Eosinophils (%) (Auto) 0.7, Basophils (%) (Auto) 0.4, Neutrophils # (Auto) 6.9, Lymphocytes # (Auto) 1.1 L, Monocytes # (Auto) 0.9 H, Eosinophils # (Auto) 0.1, Basophils # (Auto) 0.0, Calcium Level 8.7 L Vital Signs Date Time Temp Pulse Resp B/P (MAP) Pulse Ox O2 Delivery O2 Flow Rate FiO2 12/08/18 21:09 21 12/08/18 20:39 96 2.0 12/08/18 18:06 97 12/08/18 18:00 161/66 (97) 12/08/18 16:01 97.2 12/08/18 12:01 Nasal Cannula I&O- Last 24 Hours up to 6 AM 12/08/18 06:00 Intake Total 485 ml Balance 485 ml KATIE BLAKE MD Dec 08, 2018 21:54
[2018-12-08] MEDS: LORazepam 2 MG/ML VIAL (J2060) IV PRN (23:00)
[2018-12-09] MEDS: MORPHINE 30 MG TAB **MSIR PO SCH ×3 (01:00→07:51)
[2018-12-09] MEDS: LORazepam 2 MG/ML VIAL (J2060) IV PRN ×7 (01:24→15:16)
[2018-12-09] MEDS: MORPHINE SULF IN 0.9% NACL 100 MG in APPROPRIATE DILUENT 1 EA IV SCH ×2 (07:56)
--- NOTE | 2018-12-09 10:23 | IPN ---
DATE: 12/08/2018 Ms. Choe has been in the emergency room all night. Evidently, she became more tachypneic and short of breath and a blood gas was obtained which showed her pCO2 to be 83 with a pH of 7.74. I, therefore, instructed the staff to urgently admit her to the intensive care unit (ICU) after looking at her chest x-ray and finding her pneumothorax was much greater today than it was yesterday. Upon arriving in the intensive care unit, she was tachypneic and in acute respiratory distress. She at first indicated that she wanted nothing done including a chest tube placement but after laying out the consequences of not re-expanding the lung, and telling her that she would probably , her response was "put the damn tube in". Her vital signs in the emergency room shows a maximum temperature (T-max) of 97.1. Her respiratory rate was recorded as 18-22 and was 97% saturated on 2 liters nasal cannula at 4:00 a.m. Heart rate was 108 and in sinus rhythm. Her intake and output was recorded as 385 in and nothing out but with one void. She has not been weighed this morning. Her admission weight was at 79.6 kg. On physical examination, she has bilateral wheezing on either side with diffuse rhonchi throughout both inspiration and expiration. She has decreased breath sounds on the right side. Percussion note is full to the diaphragm. Cardiac exam is without murmurs, clicks, gallops, or rubs. I cannot feel her point of maximum impulse (PMI). S1 and S2 are normal. Abdomen is soft, tympanitic, slightly distended but nontender. Extremities show venostasis edema which is hard and indurated. There is no differential swelling of the upper extremities. Skin is cool and mottled. Neck is supple. There is no jugular venous distention. No subcutaneous emphysema. Trachea is midline. Mouth shows her mucous membranes to be pink and moist. Lips and commissures are without lesions. There is no thrush. Eyes show her pupils to be equal and reactive. Extraocular movements intact. Sclerae nonicteric. Neurologic shows II-XII intact along with gross motor and gross sensation intact. Gait is not tested. Psychiatric showed her to be in acute distress. She is awake and alert. Her blood gas shows a pH 7.24, pCO2 83 and a pO2 79 with a base excess of 5.3. Her white count is 9.0 with a hemoglobin and hematocrit of 10.3 and 35.3 with a platelet count 195 and stable. Differential shows 76% neutrophils, 12% lymphocytes, 9% monocytes. There are no immature forms or toxic granulations. Electrolytes are normal with an elevated total CO2 of 34 and a BUN and creatinine of 17 and 0.97 improved to 21 and 1.13 yesterday. Glucose is 264 with a calcium of 8.7. Her chest x-ray shows an increase in her pneumothorax but the post-chest tube chest x-ray showing resolution. She has subcutaneous emphysema on the lateral chest wall. She has an increased right heart border probably consistent with pulmonary hypertension. I do not see an echocardiogram on her done in this hospital. IMPRESSION: 1. Multiple rib fractures on the left and one on the right at rib #5. Increasing pneumothorax. 2. Respiratory failure, acute. 3. Chronic obstructive pulmonary disease (COPD) oxygen dependence. 4. Congestive heart failure. 5. Orthopnea. 6. Diabetes. 7. Steroid dependence. 8. Gastroesophageal reflux disease (GERD). 9. Rheumatoid arthritis on chronic steroids. 10. Distal fracture of the left clavicle. PLAN/DISCUSSION: As noted, I have already placed a chest tube. She has multiple rib fractures on both sides with the left side showing fractures of the 2nd, 4th and 6th ribs and the right side showing a fracture of the 2nd rib. I do not see a flail segment. Her hypercarbia has markedly increased from yesterday when she was admitted and we can only assume that this is secondary to her pneumothorax with lung compression. I therefore, placed a chest tube. She has severe underlying problems with her chronic COPD. She may need BiPAP to temporarily support her. It is important that we address her pain. Her creatinine is normalized and I will therefore start her on Toradol and monitor her creatinine carefully. She is resonant to accept medical interventions but I will propose to her the possibility of an epidural. She is not on any anticoagulation.
--- NOTE | 2018-12-09 10:24 | RO ---
DATE OF PROCEDURE: 12/08/2018 PREPROCEDURE DIAGNOSIS: Pneumothorax traumatic. POSTPROCEDURE DIAGNOSIS: Pneumothorax traumatic. PROCEDURE: Insertion of anterior superior chest tube. SURGEON: Samuel León MD DISPATCHER BUS AND TROLLEY: ANESTHESIA: DESCRIPTION OF PROCEDURE: Under satisfactory moderate sedation achieved with 2 mg of Versed, the patient was prepped and draped in the usual sterile fashion. The skin, subcutaneous tissue, intercostal muscle was infiltrated with 1% lidocaine as well as the pleura over the 2nd rib. A tunnel was created into the first intercostal space and a #20 chest tube was placed without difficulty. The chest tube was connected to the Pleur-evac. The chest tube was secured to the chest wall with #2 Tevdek suture. The patient tolerated the procedure well, and a chest x-ray is pending.
[2018-12-09] MEDS: MORPHINE 10MG/0.5ML ORAL CONCENTRATE SOLUTION U/D SL PRN ×5 (10:36→15:42)
[2018-12-09] MEDS ORDERED: MORPHINE 10MG/0.5ML ORAL CONCENTRATE SOLUTION U/D SL PRN (13:45)
--- NOTE | 2018-12-09 22:59 | DS.PDOC ---
Discharge Summary General Date of Admission Dec 07, 2018 at 16:54 Date of Discharge Date of 12/09/2018 Specialist/Consultants Involve: Samuel León M.D. Discharge Summary PROCEDURES PERFORMED DURING STAY: Chest tube placement, epidural placement. ADMITTING DIAGNOSES: 1. Pneumothorax, bilateral rib fractures, left distal clavicular fracture]. DISCHARGE DIAGNOSES: 1. Right pneumothorax, acute hypercarbic and acute on chronic hypoxic respiratory failure, bilateral rib fractures, left distal clavicular fracture, osteoporosis with multiple old fractures and resultant chronic pain,Chronic hypoxic respiratory failure due to oxygen dependent COPD, dyslipidemia, essential hypertension, rheumatoid arthritis, [id number] diabetes mellitus. COMPLICATIONS/CHIEF COMPLAINT: Pneumothorax. HISTORY OF PRESENT ILLNESS/HOSPITAL COURSE: This is a 73-year-old female who fell at home. It was a ground-level fall. She sustained an initially small right-sided pneumothorax, distal left clavicular fracture and bilateral rib fractures. Patient had underlying history of chronic hypoxic respiratory failure due to COPD and substantial chronic pain due to old fractures from osteoporosis and rheumatoid arthritis. The patient was initially admitted PCU status. She was then transitioned to ICU due to findings of worsening pneumothorax and hypercarbia. The patient was seen by cardiothoracic surgery service and a chest tube was placed. While this did improve her respiratory status somewhat it substantially increased her pain and discomfort. Epidural was then suggested to which the patient agreed. Patient still did not have significant relief and ended up on a morphine drip. The patient's CODE STATUS had been DO NOT INTUBATE and DO NOT RESUSCITATE. She also adamantly refused the option of BiPAP. She also made clear that she did not want a feeding tube or dialysis. Her family was very supportive of her wishes. Family and patient had initially planned to return to home with hospice services. She was already on palliative care services. In preparation for home hospice services. The epidural was removed and patient was transitioned from the morphine drip to morphine concentrated elixir by mouth as she was not going to be able to have IV morphine at home. She had also become unable to take her other pain medications by mouth. We did manage to titrate to an effective dose of 25 mg/h. The patient was then transitioned from the ICU to the [facility] floor, but she shortly thereafter.. DISCHARGE MEDICATIONS: Please see below. ALLERGIES: Please see below. PHYSICAL EXAMINATION ON DISCHARGE: This junior underwriter was not present at the time of and did not pronounce her. LABORATORY DATA: Please see below. IMAGING: PROGNOSIS: ACTIVITY: As tolerated. DIET: Not applicable DISCHARGE PLAN: Not applicable DISPOSITION: 20 . DISCHARGE INSTRUCTIONS: 1. . ITEMS TO FOLLOWUP ON ON OUTPATIENT: 1. . DISCHARGE CONDITION: . TIME SPENT ON DISCHARGE: Greater than minutes. Vital Signs/I&Os Vital Signs Date Time Temp Pulse Resp B/P (MAP) Pulse Ox O2 Delivery O2 Flow Rate FiO2 12/09/18 16:00 5.0 12/08/18 21:09 21 12/08/18 20:39 96 12/08/18 20:00 97.5 100 188/79 (115) 12/08/18 12:01 Nasal Cannula I&O- Last 24 Hours up to 6 AM 12/09/18 06:00 Intake Total 120 ml Output Total 530 ml Balance -410 ml Discharge Medications Scheduled Atorvastatin Calcium (Atorvastatin Calcium) 10 Mg Tablet, 10 MG PO DAILY, (Reported) Azithromycin (Azithromycin) 250 Mg Tablet, 250 MG PO DAILY, (Reported) Budesonide/Formoterol (Symbicort 160-4.5 Mcg Inhaler) 6 Gm Hfa.aer.ad, 2 PUFF INH BID, (Reported) Calcitonin [place] (Calcitonin-[place]) 3.7 Ml [place].pump, 1 SPRAY NA DAILY, (Reported) Carisoprodol (Carisoprodol) 350 Mg Tablet, 350 MG PO Q6H, (Reported) Clobetasol Propionate (Clobetasol Propionate) 0.05% 30GM Oint...g., 1 DOSE TOP BID, (Reported) APPLY TO LOWER LEGS Duloxetine HCl (Duloxetine HCl) 20 Mg Capsule.dr, 40 MG PO DAILY, (Reported) Ergocalciferol (Vitamin D2) (Vitamin D2) 50,000 Unit Capsule, 50,000 UNIT PO QWEEK, (Reported) SUNDAY EVENINGS Furosemide (Furosemide) 80 Mg Tablet, 80 MG PO DAILY, (Reported) Gabapentin (Gabapentin) 300 Mg Capsule, 600 MG PO BID, (Reported) Guaifenesin (Guaifenesin) 400 Mg Tablet, 400 MG PO QID, (Reported) Hydromorphone HCl (Hydromorphone ER) 32 Mg Tab.er.24h, 32 MG PO QPM, (Reported) Hydroxychloroquine Sulfate (Hydroxychloroquine Sulfate) 200 Mg Tablet, 200 MG PO BID, (Reported) Insulin Glargine,Hum.rec.anlog (Lantus Solostar) 100 Unit/1 Ml Insuln.pen, 40 UNITS SC QHS, (Reported) Insulin Human Lispro (Humalog) 100 Unit/1 Ml Vial, 1 DOSE SC WM, (Reported) PER SLIDING SCALE Lactobacillus Combo No.10 (Probiotic) 1 Each Capsule, 1 CAP PO DAILY, (Reported) Lisinopril (Lisinopril) 10 Mg Tablet, 10 MG PO DAILY, (Reported) Metoprolol Succinate (Metoprolol Succinate) 50 Mg Tab.er.24h, 50 MG PO DAILY, (Reported) Mometasone Furoate (Asmanex Hfa) 200 Mcg/Act Hfa.aer.ad, 200 MCG INH BID, (Reported) Omeprazole (Omeprazole) 40 Mg Capsule.dr, 40 MG PO DAILY, (Reported) Prednisone (Prednisone) 5 Mg Tablet, 15 MG PO DAILY, (Reported) Ranitidine HCl (Ranitidine HCl) 300 Mg Tablet, 1 TAB PO DAILY, (Reported) Scheduled PRN Albuterol Sulfate (Proair Hfa) 8.5 Gm Hfa.aer.ad, 2 PUFF INH QID PRN for SHORTNESS OF BREATH, (Reported) Levalbuterol HCl (Levalbuterol Concentrate) 1.25 Mg/0.5 Ml Vial.neb, 1.25 MG INH QID PRN for SHORTNESS OF BREATH, (Reported) Morphine Sulfate (Morphine Sulfate) 30 Mg Tablet, 30 MG PO Q4H PRN for PAIN, (Reported) Silver Sulfadiazine (Ssd) 50 Gm Cream..g., 1 DOSE TOP BID PRN for WOUND CARE, (Reported) APPLY TO LOWER LEG AT DRESSING CHANGES Allergies Coded Allergies: Sulfa (Sulfonamide Antibiotics) (Verified Allergy, Intermediate, HIVES, 12/07/18) Penicillins (Verified Allergy, Unknown, 12/07/18) Quinolones (Verified Adverse Reaction, Severe, ACHILLES TENDON RUPTURE, 12/07/18) JUVENAL TIDWELL MD Dec 09, 2018 22:59
== END 2018-12-09 16:34 | disposition expired | DRG 199 ==
LOC: EDBD 14:43 → M ED 14:43 → M ED INP 16:54 → M ICU 12-08 07:49 → M MSPAV 12-09 15:53
PROVIDERS: ADMIT Thoracic Surgery (Cardiothoracic Vascular Surgery); ATTEND Internal Medicine
PROC: 0W9930Z Drainage of Right Pleural Cavity with Drainage Device, Percutaneous Approach (ICD-10-PCS; principal; 2018-12-08 12:55)
DX: S27.0XXA Traumatic pneumothorax, initial encounter (principal); J96.21 Acute and chronic respiratory failure with hypoxia; J96.02 Acute respiratory failure with hypercapnia; S22.42XA Multiple fractures of ribs, left side, initial encounter for closed fracture; S22.31XA Fracture of one rib, right side, initial encounter for closed fracture; S42.032A Displaced fracture of lateral end of left clavicle, initial encounter for closed fracture; W18.09XA Striking against other object with subsequent fall, initial encounter; Y92.009 Unspecified place in unspecified non-institutional (private) residence as the place of occurrence of the external cause; R29.6 Repeated falls; J44.9 Chronic obstructive pulmonary disease, unspecified; Z51.5 Encounter for palliative care; Z66 Do not resuscitate; E78.5 Hyperlipidemia, unspecified; I10 Essential (primary) hypertension; M06.9 Rheumatoid arthritis, unspecified; M81.0 Age-related osteoporosis without current pathological fracture; E11.9 Type 2 diabetes mellitus without complications; K44.9 Diaphragmatic hernia without obstruction or gangrene; Z87.891 Personal history of nicotine dependence; Z79.52 Long term (current) use of systemic steroids; Z79.899 Other long term (current) drug therapy; Z88.0 Allergy status to penicillin; Z88.1 Allergy status to other antibiotic agents; Z88.2 Allergy status to sulfonamides; Z99.81 Dependence on supplemental oxygen; Z96.611 Presence of right artificial shoulder joint; I50.9 Heart failure, unspecified; Z79.891 Long term (current) use of opiate analgesic